=== PATIENT | female | born 1990 | race Caucasian/White ===

== ENCOUNTER 2018-11-27 14:54 | Emergency (ER) | payer SELFPAY ==
[~2018-11-27] VITALS: Ht 157.5 cm; Wt 70.5 kg
[2018-11-27] MEDS ORDERED: SODIUM CHLORIDE 0.9% 1,000 ML IV ONE (15:10)
[2018-11-27] MEDS ORDERED: KETOROLAC TROMETHAMINE 30 MG/ML VIAL IVP ONE (15:15)
[2018-11-27] MEDS ORDERED: ONDANSETRON HCL 4 MG/2 ML VIAL IVP ONE (15:15)
[2018-11-27 15:20] LABS: BASOPHILS % (AUTO) 0.6 % (0.0-2.0); EOSINOPHILS % (AUTO) 0.7 % (1.0-6.0); HEMATOCRIT 40.9 % (36-46); HEMOGLOBIN 13.2 g/dL (12.0-16.0); LYMPHOCYTES # (AUTO) 4.2 K/uL (1.0-4.8); MEAN CORPUSCULAR HEMOGLOBIN 27.3 pg (26.0-34.0); MEAN CORPUSCULAR HGB CONC 32.3 G/dL (31.0-37.0); MEAN CORPUSCULAR VOLUME 85 fL (80-100); MONOCYTES # (AUTO) 0.8 K/uL (0.1-1.0); MONOCYTES % (AUTO) 6.3 % (2.0-9.0); NEUTROPHILS # (AUTO) 7.5 K/uL (1.8-7.7); NEUTROPHILS % (AUTO) 59.4 % (40.0-70.0); PLATELET COUNT (AUTO) 291 K/uL (150-450); RED BLOOD CELL COUNT(AUTO) 4.84 MIL/uL (4.00-5.20); RED CELL DISTRIBUTION WIDTH 13.7 % (11.5-14.5)
[2018-11-27 15:35] LABS: ANION GAP 11 mmol/L (8-16); CALCIUM, TOTAL 8.7 mg/dL (8.8-10.5); CARBON DIOXIDE 24 mmol/L (22-29); CHLORIDE 107 mmol/L (98-107); CREATININE 1.07 mg/dL (0.60-1.30); GLOMERULAR FILTR. RATE CALC > 60 mL/min (>60); GLUCOSE,RANDOM 126 mg/dL (70-110); POTASSIUM 3.2 mmol/L (3.5-5.1); SODIUM SERUM 142 mmol/L (136-145); UREA NITROGEN, BLOOD 15 mg/dL (7-18)
[2018-11-27 15:46] LABS: ALANINE AMINOTRANSFERASE 23 U/L (12-78); ALBUMIN 3.6 g/dL (3.4-5.0); ALKALINE PHOSPHATASE 119 U/L (46-116); ASPARTATE AMINOTRANSFERASE 16 U/L (15-37); BILIRUBIN,TOTAL 0.6 mg/dL (0.1-1.0); HCG,QUANTITATIVE < 1 mIU/mL (0-6); LIPASE 177 U/L (73-393); TOTAL PROTEIN, SERUM 7.7 g/dL (6.4-8.2)
[2018-11-27] MEDS ORDERED: MORPHINE SULFATE 4 MG/ML SYRINGE IVP ONE (16:00)
[2018-11-27 17:41] LABS: APPEARANCE,URINE CLEAR (CLEAR); BILIRUBIN,URINE NEGATIVE (NEGATIVE); GLUCOSE, URINE (UA) NEGATIVE (NEGATIVE); KETONES,URINE NEGATIVE (NEGATIVE); LEUKOCYTE ESTERASE ,URINE NEGATIVE (NEGATIVE); NITRATE,URINE NEGATIVE (NEGATIVE); OCCULT BLOOD,URINE LARGE (NEGATIVE); PH,URINE 7.5 (5.0-8.0); PROTEIN,URINE NEGATIVE (NEGATIVE); UROBILINOGEN,URINE 0.2 mg/dL (<=1.0)
[2018-11-27] MEDS ORDERED: POTASSIUM CHLORIDE 20 MEQ ER TABLET PO ONE (17:45)
[2018-11-27 17:49] LABS: BACTERIA,URINE Few /HPF (None Seen); SQUAMOUS EPITHELIAL CELL,UR Moderate /LPF (None Seen); WBC,URINE 0-2 /HPF (0-5)
[2018-11-27 19:01] VITALS: BP 146/96
== END 2018-11-27 19:05 | disposition home or self-care (01) ==
LOC: EMS 14:56 → EDBD 14:56 → EMS 19:05
DX: N20.1 Calculus of ureter (principal)
CPT/HCPCS: 36415; 74176; 80053; 81001; 83690; 84702; 85025; 96374; 96375; 99284; J1885; J2270; J2405; J7030

== ENCOUNTER 2022-10-16 11:43 | Emergency (ER) | payer MEDICAID ==
[~2022-10-16] VITALS: Ht 157.5 cm; Wt 68.2 kg
[2022-10-16] MEDS ORDERED: [UNRECOGNIZED DRUG - REMARK] PO (11:45)
[2022-10-16] MEDS ORDERED: FURO20 PO (11:45)
[2022-10-16] MEDS ORDERED: KETOROLAC TROMETHAMINE 60 MG/2 ML VIAL IM ONE (12:15)
[2022-10-16] MEDS ORDERED: IBUP-1492 PO (13:53)
[2022-10-16 14:00] VITALS: BP 141/95
== END 2022-10-16 14:40 | disposition home or self-care (01) ==
LOC: EMS 11:45
DX: S20.212A Contusion of left front wall of thorax, initial encounter (principal); Z98.890 Other specified postprocedural states; W01.0XXA Fall on same level from slipping, tripping and stumbling without subsequent striking against object, initial encounter; Y93.E5 Activity, floor mopping and cleaning; Y92.89 Other specified places as the place of occurrence of the external cause; Y99.8 Other external cause status
CPT/HCPCS: 99283; 71046; 96372; J1885

== ENCOUNTER 2023-01-26 11:15 | Emergency (ER) | payer MEDICAID ==
[~2023-01-26] VITALS: Ht 157.5 cm; Wt 68.2 kg
[~2023-01-26 11:15] MED LIST: FURO20 PO; IBUP-1492 PO; [UNRECOGNIZED DRUG - REMARK] PO
[2023-01-26] MEDS ORDERED: DOXY-354 PO (13:34)
[2023-01-26] MEDS ORDERED: DOXYCYCLINE HYCLATE 100 MG TABLET PO ONE (13:45)
[2023-01-26] MEDS ORDERED: LIDOCAINE/PF 1% 2 ML VIAL IM ONE (13:45)
[2023-01-26] MEDS ORDERED: CefTRIAXone SODIUM 1 GM/VIAL IM ONE (13:45)
[2023-01-26 14:12] VITALS: BP 142/87; PULSE 88; RESP 18; TEMP 98.1
== END 2023-01-26 14:14 | disposition home or self-care (01) ==
LOC: EMS 11:16
DX: K62.89 Other specified diseases of anus and rectum (principal); I50.9 Heart failure, unspecified; Z98.890 Other specified postprocedural states
CPT/HCPCS: 99283; 87491; 87591; 96372; J0696; J3490

== ENCOUNTER 2024-11-05 01:34 | Emergency (ER) | payer OTHER ==
[~2024-11-05] VITALS: Ht 157.5 cm; Wt 70.5 kg
[~2024-11-05 01:34] MED LIST changes: +DOXY-354 PO; -FURO20 PO; +FURO20TA5 PO; -IBUP-1492 PO; +LISI-892 PO; +METO25XL PO; +SPIR-37 PO; -[UNRECOGNIZED DRUG - REMARK] PO
[2024-11-05 01:37] VITALS: TEMP 98.2
[2024-11-05 01:47] LABS: COVID AG,FIA SOURCE NASAL SWAB
[2024-11-05 02:11] LABS: SARS-COV2 (COVID) ANTIGEN,FIA Negative (Negative)
[2024-11-05 02:11] LABS: BASOPHILS % (AUTO) 0.6 % (0.0-2.0); HEMATOCRIT 38.7 % (36-46); HEMOGLOBIN 12.9 g/dL (12.0-16.0); LYMPHOCYTES # (AUTO) 2.4 K/uL (1.0-4.8); LYMPHOCYTES % (AUTO) 23.2 % (22.0-44.0); MEAN CORPUSCULAR HGB CONC 33.3 G/dL (31.0-37.0); MEAN CORPUSCULAR VOLUME 87 fL (80-100); MONOCYTES # (AUTO) 0.5 K/uL (0.1-1.0); MONOCYTES % (AUTO) 5.3 % (2.0-9.0); NEUTROPHILS % (AUTO) 68.9 % (40.0-70.0); PLATELET COUNT (AUTO) 228 K/uL (150-450); RED BLOOD CELL COUNT(AUTO) 4.44 MIL/uL (4.00-5.20); RED CELL DISTRIBUTION WIDTH 14.9 % (11.5-14.5); WHITE BLOOD COUNT (AUTO) 10.2 K/uL (4.5-11.0)
[2024-11-05 02:12] LABS: INFLUENZA TYPE A NEGATIVE FOR TYPE A (NEGATIVE); INFLUENZA TYPE B NEGATIVE FOR TYPE B (NEGATIVE)
[2024-11-05 02:20] LABS: ANION GAP 7 mmol/L (8-16); CALCIUM, TOTAL 8.3 mg/dL (8.8-10.5); CARBON DIOXIDE 27 mmol/L (22-29); CHLORIDE 105 mmol/L (98-107); CREATININE 0.93 mg/dL (0.60-1.30); GLOMERULAR FILTR. RATE CALC > 60 mL/min (>60); GLUCOSE,RANDOM 99 mg/dL (70-110); SODIUM SERUM 139 mmol/L (136-145); UREA NITROGEN, BLOOD 14 mg/dL (7-18)
[2024-11-05 02:23] LABS: ALBUMIN 2.9 g/dL (3.4-5.0); B-TYPE NATRIURETIC PEPTIDE 382 pg/mL (0-100); BILIRUBIN,DIRECT 0.1 mg/dL (0.00-0.20); BILIRUBIN,TOTAL 0.6 mg/dL (0.1-1.0); TOTAL PROTEIN, SERUM 6.9 g/dL (6.4-8.2)
[2024-11-05] MEDS: ACETAMINOPHEN 500 MG TABLET PO ONE (03:18)
[2024-11-05] MEDS: BENZONATATE 100 MG CAPSULE PO ONE (03:19)
[2024-11-05] MEDS: GuaiFENesin/D-METHORPHAN [SUGAR-FREE] 200-20MG/10 ML SYRUP UDCUP PO ONE (03:19)
[2024-11-05] MEDS ORDERED: BENZ-227 PO (03:33)
[2024-11-05] MEDS ORDERED: ACET-66 PO (03:33)
[2024-11-05] MEDS ORDERED: METO25XL PO (03:33)
[2024-11-05] MEDS ORDERED: GUAIFDM PO (03:33)
[2024-11-05] MEDS ORDERED: FURO-152 PO (03:33)
[2024-11-05] MEDS ORDERED: SPIR-37 PO (03:33)
[2024-11-05 03:48] VITALS: BP 134/90; PULSE 95; RESP 18; O2SAT 98
== END 2024-11-05 03:52 | disposition home or self-care (01) ==
LOC: EMS 01:34
DX: J06.9 Acute upper respiratory infection, unspecified (principal); I11.0 Hypertensive heart disease with heart failure; I50.9 Heart failure, unspecified; Z79.899 Other long term (current) drug therapy; Z20.822 Contact with and (suspected) exposure to COVID-19
CPT/HCPCS: 71045; 80048; 80076; 83880; 85025; 87804; 93005; 99285; 36415-L1; 36415-TC